=== PATIENT | male | born 1960 | race Caucasian/White ===

== ENCOUNTER → 2021-02-01 | Day surgery (SDC) | payer OTHER ==
[~2021-02-01] VITALS: Ht 30.5 cm; Wt 0.5 kg
[~2021-02-01] MED LIST: CIPROFLOXACIN 400MG/200ML 200 ML IV ONE; GLYCOPYRROLATE 0.2 MG/ML 1ML VIAL ONE; HYDROmorphone HCL 2 MG/ML VL IV PRN; MIDAZOLAM HCL 1MG/1ML-2 ML VIAL ONE; NEOSTIGMINE 1 MG/ML INJ (10mg/10ML VIAL) ONE; ONDANSETRON HCL 4 MG/2 ML VIAL IV PRN; ONDANSETRON HCL 4 MG/2 ML VIAL ONE; ROCURONIUM 10MG/ML 10ML VIAL IV ONE; fentaNYL CITRATE 100 MCG/2 ML VL ONE
[2021-02-01 09:40] VITALS: BP 121/70
== END | disposition home or self-care (01) ==
LOC: SUR 06:15
PROVIDERS: ATTEND Urology
DX: N40.1 Benign prostatic hyperplasia with lower urinary tract symptoms (principal); N21.0 Calculus in bladder; Z98.890 Other specified postprocedural states; Z79.899 Other long term (current) drug therapy; Z20.822 Contact with and (suspected) exposure to COVID-19
CPT/HCPCS: 36415; 51050; 52649; 88300; 88305; J0744; J2250; J2405; J3010; U0003

== ENCOUNTER 2022-11-22 09:25 | Inpatient (IN) | payer OTHER ==
[~2022-11-22] VITALS: Ht 190.5 cm; Wt 97.6 kg
[2022-11-22 09:59] LABS: Basophils # (auto) 0 10 ^3/uL (0-0.2); Basophils % (auto) 0.5 % (0.0-2.0); Eosinophils # (auto) 0.2 10 ^3/uL (0-0.8); Eosinophils % (auto) 2.4 % (0.0-7.0); Hematocrit 51.4 % (41.0-53.0); Hemoglobin 17.2 g/dL (13.5-17.5); Lymphocytes # (auto) 1.4 10 ^3/uL (0.4-5.4); Lymphocytes % (auto) 16.9 % (10.0-50.0); Mean Corpuscular Hemoglobin 29.1 pg (28.0-32.0); Mean Corpuscular Hgb Conc. 33.5 g/dL (32.0-36.0); Mean Corpuscular Volume 86.8 fL (80.0-100.0); Monocytes # (auto) 0.9 10 ^3/uL (0-1.3); Monocytes % (auto) 10.3 % (0.0-12.0); Neutrophils % (auto) 69.9 % (37.0-80.0); Nucleated Red Blood Cells % 0.4 %; Red Blood Cells 5.92 10^6/uL (4.5-5.90); Red Cell Distribution Width 14.1 % (11.8-14.3); White Blood Cell 8.5 10^3/uL (4.4-10.8)
[2022-11-22 10:12] LABS: Albumin 3.8 g/dL (3.4-5.0); Calcium 8.6 mg/dL (8.5-10.1); Magnesium 2.4 mg/dL (1.6-2.6); Potassium 3.9 mmol/L (3.5-5.1)
[2022-11-22] MEDS ORDERED: dilTIAZem 25 MG/5 ML VIAL IV ONE ×2 (10:15→11:00)
[2022-11-22 10:16] LABS: BUN/Creatinine Ratio 18.1; Bilirubin, Total 0.8 mg/dL (0.2-1.0); Total Protein 7.2 g/dL (6.4-8.2)
[2022-11-22 10:36] LABS: INR 1.08 (0.9-1.15); Partial Thromboplastin Time 32.8 sec (24.6-33.4)
[2022-11-22] MEDS ORDERED: dilTIAZem 120MG ER CAP PO ONE (11:00)
[2022-11-22 12:05] LABS: Urine Bacteria NONE SEEN /hpf (None Seen); Urine Blood TRACE /uL (Negative); Urine Mucus FEW (None Seen); Urine Specific Gravity 1.018 (1.001-1.035); Urine WBC 3 /hpf (0 - 3)
[2022-11-22] MEDS ORDERED: AMIODARONE HCL 150 MG in D5W 5% 100 ML IV ONE (13:30)
[2022-11-22] MEDS ORDERED: AMIODARONE 450mg/250ml AE 250 ML IV SCH (13:45)
[2022-11-22] MEDS ORDERED: NITROGLYCERIN 0.4 MG SL TAB SL PRN (13:45)
[2022-11-22] MEDS ORDERED: ENOXAPARIN SOD 100 MG/1 ML SYRINGE SC ONE (13:45)
[2022-11-22] MEDS ORDERED: MORPHINE SULFATE INJ 2 MG/ml SYRG IV PRN (13:45)
[2022-11-22 14:25] LABS: Cholesterol 174 mg/dL (< 200); HDL Cholesterol 58 mg/dL (40-59); LDL Cholesterol 114 mg/dL (< 100); Triglycerides 80 mg/dL (< 150)
[2022-11-22] MEDS: AMIODARONE 450mg/250ml AE 250 ML IV SCH ×2 (20:51→23:32)
[2022-11-22] MEDS: ENOXAPARIN SOD 100 MG/1 ML SYRINGE SC SCH (22:04)
[2022-11-23 00:16] VITALS: BP 125/68
[2022-11-23 05:00] VITALS: BP 118/62
[2022-11-23 06:18] LABS: Basophils # (auto) 0 10 ^3/uL (0-0.2); Basophils % (auto) 0.5 % (0.0-2.0); Eosinophils # (auto) 0.3 10 ^3/uL (0-0.8); Eosinophils % (auto) 2.6 % (0.0-7.0); Hematocrit 49.7 % (41.0-53.0); Hemoglobin 17.1 g/dL (13.5-17.5); Lymphocytes # (auto) 1.7 10 ^3/uL (0.4-5.4); Lymphocytes % (auto) 16.4 % (10.0-50.0); Mean Corpuscular Hemoglobin 29.6 pg (28.0-32.0); Mean Corpuscular Hgb Conc. 34.4 g/dL (32.0-36.0); Mean Corpuscular Volume 86.2 fL (80.0-100.0); Monocytes # (auto) 1.1 10 ^3/uL (0-1.3); Monocytes % (auto) 11.1 % (0.0-12.0); Neutrophils # (auto) 7.1 10 ^3/uL (1.6-8.6); Neutrophils % (auto) 69.4 % (37.0-80.0); Nucleated Red Blood Cells % 0.3 %; Red Blood Cells 5.76 10^6/uL (4.5-5.90); Red Cell Distribution Width 14.4 % (11.8-14.3); White Blood Cell 10.2 10^3/uL (4.4-10.8)
[2022-11-23 06:31] LABS: Albumin 3.7 g/dL (3.4-5.0); Calcium 8.9 mg/dL (8.5-10.1); Potassium 4.5 mmol/L (3.5-5.1)
[2022-11-23 06:36] LABS: BUN/Creatinine Ratio 13.6; Bilirubin, Total 1.6 mg/dL (0.2-1.0); Total Protein 6.6 g/dL (6.4-8.2)
[2022-11-23 09:00] VITALS: BP 116/66
[2022-11-23] MEDS: ENOXAPARIN SOD 100 MG/1 ML SYRINGE SC SCH ×2 (10:32→21:52)
[2022-11-23 13:00] VITALS: BP 110/75
[2022-11-23 17:00] VITALS: BP 107/74
[2022-11-23] MEDS: AMIODARONE HCL 200 MG TAB PO SCH (21:52)
[2022-11-23 22:00] VITALS: BP 127/69
[2022-11-24 05:00] VITALS: BP 112/68
[2022-11-24 09:00] VITALS: BP 112/66
[2022-11-24] MEDS: AMIODARONE HCL 200 MG TAB PO SCH ×2 (10:17→18:41)
[2022-11-24] MEDS: ENOXAPARIN SOD 100 MG/1 ML SYRINGE SC SCH (10:17)
[2022-11-24 13:00] VITALS: BP 107/70
[2022-11-24] MEDS ORDERED: MET25T PO (15:25)
[2022-11-24] MEDS ORDERED: AMIO200T33 PO (15:25)
[2022-11-24] MEDS ORDERED: APIX5TAB PO (15:25)
[2022-11-24 17:00] VITALS: BP 128/78
[2022-11-24 17:48] VITALS: BP 128/78
[2022-11-24] MEDS ORDERED: APIXABAN 5 MG TAB PO SCH (22:00)
[2022-11-24] MEDS ORDERED: METOPROLOL TARTRATE 25 MG TAB PO SCH (22:00)
== END 2022-11-24 19:50 | disposition home or self-care (01) | DRG 201 ==
LOC: ER 09:25 → TELE 13:37 → TELE-WESTW 22:11
PROVIDERS: ADMIT Nurse Practitioner Family; ATTEND Nurse Practitioner Family
DX: I48.91 Unspecified atrial fibrillation (principal); N40.0 Benign prostatic hyperplasia without lower urinary tract symptoms; Z20.822 Contact with and (suspected) exposure to COVID-19
CPT/HCPCS: 36415; 71045; 80053; 80061; 81001; 83036; 83735; 83880; 84443; 84484; 85025; 85379; 85610; 85730; 87426; 93005; 93306; 93970; 96365; 96366; 96375; 96376; 99291; G0378; J7060

== ENCOUNTER 2024-10-01 10:44 | Inpatient (IN) | payer OTHER ==
[~2024-10-01] VITALS: Ht 190.5 cm; Wt 96.5 kg
[~2024-10-01 10:44] MED LIST changes: +AMIO200T33 PO; +APIX5TAB PO; -CIPROFLOXACIN 400MG/200ML 200 ML IV ONE; -GLYCOPYRROLATE 0.2 MG/ML 1ML VIAL ONE; -HYDROmorphone HCL 2 MG/ML VL IV PRN; +MET25T PO; -MIDAZOLAM HCL 1MG/1ML-2 ML VIAL ONE; -NEOSTIGMINE 1 MG/ML INJ (10mg/10ML VIAL) ONE; -ONDANSETRON HCL 4 MG/2 ML VIAL IV PRN; -ONDANSETRON HCL 4 MG/2 ML VIAL ONE; -ROCURONIUM 10MG/ML 10ML VIAL IV ONE; -fentaNYL CITRATE 100 MCG/2 ML VL ONE
--- NOTE | 2024-10-01 10:56 | ECG ---
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
--- NOTE | 2024-10-01 11:06 | ED.PDOC ---
HPI Comments HPI: 64y M who presents to the ED for chief complaint of palpitations. Pt presents to the ED with the following: - pt states he has been having palpitations, lightheadedness, and shortness of breath, since 1 days prior getting progressively since - pt also has substernal chest pain, aching in nature, intermittent, rating the pain 3/10, with no associated exacerbating or relieving factors - pt states he has history of AFIB but states he has not taken his medications because they are -pt noted to be in AFIB with heart rate in the 150's per multiple EKG's - pt is currently on blood thinner eliquis which he is currently taking VITALS: Temp: 98.2 F RR: 18 02 sat : 96% on room air HR: 156 BP: 103/49 PMH: AFIB, prostate PSH: prostate surgery, Social history: denies tobacco use, denies ETOH use, denies drug use Medications: flecanide, eliquis, carvidelol Allergies: amiodarone, IV contrast, digoxin, gabapentin, iodine, lorezapam, Chief Complaint: Palpitations Time Seen by MD: 10:51 Primary Care Provider: QUYNH Martinez Notes: Nurses Notes, Medications, Allergies Allergies: Coded Allergies: NO KNOWN ALLERGIES (Unverified , 11/22/22) Home Meds Active Scripts Metoprolol Tartrate (Lopressor) 25 Mg Tb, 25 MG PO BID for 30 Days, #60 TAB Prov:MARGI GRAF MD 11/24/22 Apixaban Base (ELIQUIS) 5 Mg Tab, 5 MG PO BID for 30 Days, #60 TAB Prov:MARGI GRAF MD 11/24/22 Amiodarone Hcl (Amiodarone Hcl) 200 Mg Tab, 1 TAB PO BID for 30 Days, #60 TAB 1 Refill Prov:MARGI GRAF MD 11/24/22 Information Source: Patient Past Medical History PAST MEDICAL HISTORY: AFIB Family History Family History: Reviewed,noncontributory to illness Social History Smoker: Non-Smoker Alcohol: Rarely Drugs: Denies Drug Use Lives In: Home Was a procedure done? Was a procedure done?: No X-Ray, Labs, Meds, VS Vital Signs Date Time Temp Pulse Resp B/P (MAP) Pulse Ox O2 Delivery O2 Flow Rate FiO2 12/13/24 12:55 148 114/60 10/01/24 11:50 150 10/01/24 11:16 98.4 158 18 100/68 (79) 96 98.4 10/01/24 10:57 156 10/01/24 10:51 156 10/01/24 10:48 98.2 78 18 103/49 (67) 96 Lab Test 10/01/24 12:07 10/01/24 11:00 10/01/24 10:56 Range/Units Troponin I High Sensitivity 3 L 4 </=54 ng/L White Blood Count 6.1 4.4-10.8 10^3/uL Red Blood Count 5.82 4.5-5.90 10^6/uL Hemoglobin 17.4 13.5-17.5 g/dL Hematocrit 51.2 41.0-53.0 % Mean Corpuscular Volume 87.9 80.0-100.0 fL Mean Corpuscular Hemoglobin 30.0 28.0-32.0 pg Mean Corpuscular Hemoglobin Concent 34.1 32.0-36.0 g/dL Red Cell Distribution Width 13.9 11.8-14.3 % Platelet Count 200 140-450 10^3/uL Mean Platelet Volume 8.5 6.9-10.8 fL Neutrophils (%) (Auto) 60.5 37.0-80.0 % Lymphocytes (%) (Auto) 21.0 10.0-50.0 % Monocytes (%) (Auto) 17.1 H 0.0-12.0 % Eosinophils (%) (Auto) 1.0 0.0-7.0 % Basophils (%) (Auto) 0.4 0.0-2.0 % Neutrophils # (Auto) 3.7 1.6-8.6 10 ^3/uL Lymphocytes # (Auto) 1.3 0.4-5.4 10 ^3/uL Monocytes # (Auto) 1.0 0-1.3 10 ^3/uL Eosinophils # (Auto) 0.1 0-0.8 10 ^3/uL Basophils # (Auto) 0 0-0.2 10 ^3/uL Nucleated Red Blood Cells 0.3 % Sodium Level 144 136-145 mmol/L Potassium Level 4.4 3.5-5.1 mmol/L Chloride Level 109 H 98-107 mmol/L Carbon Dioxide Level 27 20-31 mmol/L Anion Gap 8 5-15 Blood Urea Nitrogen 17 9-23 mg/dL Creatinine 1.20 0.700-1.30 mg/dL Glomerular Filtration Rate Calc 68 >90 mL/min BUN/Creatinine Ratio 14.2 10.0-20.0 Serum Glucose 98 74-106 mg/dL Lactic Acid Level 1.8 0.4-2.0 mmol/L Calcium Level 9.9 8.7-10.4 mg/dL Magnesium Level 2.2 1.6-2.6 mg/dL Total Bilirubin 0.8 0.2-1.0 mg/dL Aspartate Amino Transferase (AST) 31 13-40 U/L Alanine Aminotransferase (ALT) 31 7-40 U/L Alkaline Phosphatase 94 46-116 U/L B-Type Natriuretic Peptide 443.14 0-100 pg/mL Total Protein 6.5 5.7-8.2 g/dL Albumin 4.2 3.2-4.8 g/dL Urine Color Pending Urine Clarity Pending Urine pH Pending Urine Specific [place] Pending Urine Protein Pending Urine Ketones Pending Urine Blood Pending Urine Nitrite Pending Urine Bilirubin Pending Urine Urobilinogen Pending Urine Leukocyte Esterase Pending Urine RBC Pending Urine WBC Pending Urine Squamous Epithelial Cells Pending Urine Bacteria Pending Urine Glucose Pending Current Medications Medications (Trade) Dose Ordered Sig/Eulalia Route Start Time Stop Time Status Last Admin Sodium Chloride 250 ml @ 1,000 mls/hr Q15M ONCE IV 10/01/24 12:00 10/01/24 12:14 DC 10/01/24 12:02 Metoprolol Tartrate (Lopressor) 5 mg ONCE ONCE IV 10/01/24 12:45 10/01/24 12:46 [place] 10/01/24 12:[address] [address] Ph: [phone] DIAGNOSTIC IMAGING Diagnostic Imaging Report : [id number] Signed PATIENT: ARASH ADAMSACCT: [id number] UNIT: [id number] : 1960 LOC: ER ROOM / BED: / AGE / SEX: 64 / M ADM STATUS: REG ER SERVICE 1102 ORDERING PHYSICIAN: GEOVANI FARIAS DO PROCEDURE(s): CXRP - CHEST PORTABLE REASON: cp, palpitations,sob ORDER NUMBER(s): [id number], ACCESSION NUMBER(s): [id number] CLINICAL INFORMATION: 64 years old, Male; chest pain, palpitations, shortness of breath. TECHNIQUE: Single AP portable chest radiograph was obtained. COMPARISON: CHEST PORTABLE on DOS: 11/22/22, CXRP on DOS: 11/22/22 FINDINGS: Lungs: Clear. Cardiac: Heart size is within normal limits. Pulmonary vasculature: Unremarkable. Mediastinum/adriana: Unremarkable. Bones: No acute osseous abnormality identified. Other: No other significant findings. IMPRESSION: No evidence of acute disease in the chest. ATED BY: MARCO A ROGER DO DICTATED DATE/TIME: 10/01/241121 SIGNED BY: MARCO A ROGER DO SIGNED DATE/TIME: 10/01/241121 CC: Patient Education/Counseling: Diagnosis, Treatment Family Education/Counseling: No Family Present Additional Information Patient presented with the above HPI.---palpitations---workup was initiated. patient was found with the above mentioned diagnosis. the following medications were ordered: metoprolol, IV fluids the following tests were ordered: troponin x3, chest x-ray, UA, magnesium, lactic acid, CMP, CBC, BNP, EKG x3 Patient ED course and VS have been stabilized. Patient has been reassessed in the ED and remained in a stable condition. Patient has been observed in the ED adequate length of time to insure improvement/stability. Escalation of care considered: Consideration of escalation to observation or admission. patient was admitted to the medicine team for further evaluation and treatment of their presentation. All the reports of any imaging studies that were ordered by myself were reviewed by myself. Departure 1 Departure Time of Disposition: 13:04 Impression: Primary Impression: Atrial fibrillation with RVR Additional Impressions: Chest pain Generalized weakness Disposition: ADMITTED INPATIENT Admit to: Tele Condition: Guarded Discharged With: Self Critical Care Note Critical Care Time?: No Heart Score Heart Score: Heart Score Response (Comments) Value History Moderate Suspicious 1 Age 45-64 1 Risk Factors 1 or 2 risk factors 1 Total 3 I personally scribed for GEOVANI FARIAS DO ([email or web address]) on 10/01/24 at 11:06. Electronically submitted by En Mirza ([facility] I personally scribed for GEOVANI FARIAS DO ([facility]) on 10/01/24 at 13:25. Electronically submitted by En Mirza ([facility]). GEOVANI FARIAS DO Oct 01, 2024 11:06
[2024-10-01 11:24] LABS: Basophils # (auto) 0 10 ^3/uL (0-0.2); Basophils % (auto) 0.4 % (0.0-2.0); Eosinophils # (auto) 0.1 10 ^3/uL (0-0.8); Hematocrit 51.2 % (41.0-53.0); Hemoglobin 17.4 g/dL (13.5-17.5); Lymphocytes # (auto) 1.3 10 ^3/uL (0.4-5.4); Mean Corpuscular Hgb Conc. 34.1 g/dL (32.0-36.0); Mean Corpuscular Volume 87.9 fL (80.0-100.0); Monocytes % (auto) 17.1 % (0.0-12.0); Neutrophils # (auto) 3.7 10 ^3/uL (1.6-8.6); Neutrophils % (auto) 60.5 % (37.0-80.0); Nucleated Red Blood Cells % 0.3 %; Platelet Count (auto) 200 10^3/uL (140-450); Red Blood Cells 5.82 10^6/uL (4.5-5.90); Red Cell Distribution Width 13.9 % (11.8-14.3); White Blood Cell 6.1 10^3/uL (4.4-10.8)
--- NOTE | 2024-10-01 11:25 | DVH ---
CLINICAL INFORMATION: 64 years old, Male; chest pain, palpitations, shortness of breath. TECHNIQUE: Single AP portable chest radiograph was obtained. COMPARISON: CHEST PORTABLE on DOS: 11/22/22, CXRP on DOS: 11/22/22 FINDINGS: Lungs: Clear. Cardiac: Heart size is within normal limits. Pulmonary vasculature: Unremarkable. Mediastinum/adriana: Unremarkable. Bones: No acute osseous abnormality identified. Other: No other significant findings. IMPRESSION: No evidence of acute disease in the chest.
[2024-10-01 11:38] LABS: Alanine Aminotransferase 31 U/L (7-40); Albumin 4.2 g/dL (3.2-4.8); Alkaline Phosphatase 94 U/L (46-116); Anion Gap 8 (5-15); Aspartate Aminotransferase 31 U/L (13-40); BUN/Creatinine Ratio 14.2 (10.0-20.0); Blood Urea Nitrogen 17 mg/dL (9-23); Calcium 9.9 mg/dL (8.7-10.4); Carbon Dioxide 27 mmol/L (20-31); Glucose 98 mg/dL (74-106); Magnesium 2.2 mg/dL (1.6-2.6); Potassium 4.4 mmol/L (3.5-5.1); Sodium 144 mmol/L (136-145)
[2024-10-01 11:39] LABS: Total Protein 6.5 g/dL (5.7-8.2)
[2024-10-01 11:50] LABS: Chloride 109 mmol/L (98-107)
[2024-10-01 12:00] VITALS: PULSE 146; RESP 12; O2SAT 94
[2024-10-01] MEDS: SODIUM CHLORIDE 0.9% 250 ML IV ONE (12:02)
[2024-10-01 12:41] LABS: Bilirubin, Total 0.8 mg/dL (0.2-1.0)
[2024-10-01] MEDS: METOPROLOL TARTRATE 1MG/1ML-5ML VIAL IV ONE ×2 (12:55→13:38)
[2024-10-01 13:00] LABS: Urine Bacteria None Seen /hpf (None Seen)
[2024-10-01 13:37] LABS: Urine Blood 1+ /uL (Negative); Urine Clarity Clear (Clear); Urine Color Yellow (Yellow); Urine Hyaline Cast FEW /lpf (0 - 2); Urine Mucus FEW (None Seen); Urine Protein, UAD TRACE (Negative); Urine Specific Gravity 1.026 (1.001-1.035); Urine Urobilinogen Normal (Negative); Urine WBC 2 /hpf (0 - 3); Urine pH 5.5 (5.0-9.0)
[2024-10-01] MEDS ORDERED: ACETAMINOPHEN 325 MG TAB PO PRN (14:15)
[2024-10-01] MEDS ORDERED: NITROGLYCERIN 0.4 MG SL TAB SL PRN ×2 (14:15)
[2024-10-01] MEDS ORDERED: ZOLPIDEM TARTRATE 5 MG TAB PO PRN (14:15)
[2024-10-01] MEDS ORDERED: MORPHINE SULFATE INJ 2 MG/ml SYRG IV PRN (14:15)
[2024-10-01] MEDS ORDERED: MORPHINE SULFATE 4 MG/ML SYR/VIAL IV PRN (14:15)
[2024-10-01] MEDS ORDERED: LORazepam 0.5 MG TAB PO PRN (14:15)
[2024-10-01] MEDS ORDERED: ONDANSETRON HCL 4 MG/2 ML VIAL IV PRN (14:15)
--- NOTE | 2024-10-01 14:43 | DVHHP2 ---
History of Present Illness Reason for Visit: palpitations History of Present Illness Jonatan Vázquez is a 64-year-old male with past medical history of AFib and prostate disease who presents to the ED today for palpitations, lightheadedness, shortness of breath, chest pain x1 day. Patient reports that he had palpitations for the last 3 days. Prior to that on Friday he developed a stomach flu stated he went to a [employer] restaurant and had a buffet. Prior to that 3 weeks ago he said he had a root canal was on antibiotics had stopped his Eliquis for 2 days and has resumed back on it. Patient also reports that he has medication flecainide that is not been taking it due to it being . He reports that he did not go back into see his physician for a refill. He states that he has been taking all his other medications. He also reports that he sees Dr. Tam for any heart condition but has not seen him recently. Patient denies any fevers, chills, headache, abdominal pain, nausea, vomiting, and diarrhea. Cardiovascular: AFIB Renal/: Other (prostate) Past Surgical History: Other (Prostate erosion laser) Family History: Cancer, Other (Mom - breast CA Dad - Afib Brother - Mantle cell lymphoma 2nd Brother - Afib) Smoke: No ALCOHOL: none Drugs: None Lives: with Family Domestic Violence: Neg Review of Systems Constitutional: No: Fever, Chills, Sweats, Weakness, Malaise, Other Eyes: No: Pain, Vision change, Conjunctivae inflammation, Eyelid inflammation, Other, Redness ENT: No: Ear pain, Ear discharge, Nose pain, Nose discharge, Nose congestion, M outh pain, Mouth swelling, Throat pain, Throat swelling, Other Respiratory: Shortness of breath; No: Cough, Dry, SOB with excertion, Wheezing, Hemoptysis, Pleuritic Pain, Sputum, Wheezing, Other Cardiovascular: Chest Pain, Palpitations, Lt Headedness; No: Orthopnea, Paroxysmal Noc. Dyspnea, Edema, Other Gastrointestinal: No: Nausea, Vomiting, Abdominal Pain, Diarrhea, Constipation, Melena, Hematochezia, Other Genitourinary: No Dysuria, No Frequency, No Incontinence, No Hematuria, No Retention, No Other Musculoskeletal: No: other, neck pain, shoulder pain, arm pain, back pain, hand pain, leg pain, foot pain Skin: No: Rash, Lesions, Jaundice, Bruising, Other Neurological: No: Weakness, Numbness, Incoordination, Change in speech, Confusion, Seizures, Other Allergies: Coded Allergies: NO KNOWN ALLERGIES (Unverified , 11/22/22) Medications Current Medications Medications Dose Ordered Sig/Eulalia Route Start Time Stop Time Status Last Admin Dose Admin Aspirin 81 mg DAILY PO 10/02/24 10:00 UNV Atorvastatin Calcium 40 mg HS PO 10/01/24 22:00 UNV Morphine Sulfate 2 mg Q30MP PRN IV 10/01/24 14:15 UNV Acetaminophen 650 mg Q6HP PRN PO 10/01/24 14:15 UNV Zolpidem Tartrate 5 mg QHSP PRN PO 10/01/24 14:15 UNV Lorazepam 0.5 mg Q6HP PRN PO 10/01/24 14:15 UNV Docusate Sodium 100 mg DAILY PO 10/02/24 10:00 UNV Nitroglycerin 0.4 mg Q5MINP PRN SL 10/01/24 14:15 UNV Ondansetron HCl 4 mg Q4HP PRN IV 10/01/24 14:15 UNV Nitroglycerin 0.4 mg Q5MINP PRN SL 10/01/24 14:15 UNV Morphine Sulfate 2 mg Q30M PRN IV 10/01/24 14:15 UNV Exam Vital Signs Vital Signs Date Time Temp Pulse Resp B/P (MAP) Pulse Ox O2 Delivery O2 Flow Rate FiO2 10/01/24 13:38 126 126/61 10/01/24 13:34 17 96 10/01/24 12:00 Room Air* 0 21 10/01/24 11:16 98.4 98.4 General Appearance: Alert, Oriented X3, Cooperative, No acute distress HEENT: Atraumatic, PERRLA, EOMI, Mucous membr. moist/pink Respiratory: Clear to auscultation, Normal air movement Cardiovascular: Normal S1, Normal S2, No murmurs Abdominal: Normal bowel sounds, Soft, No tenderness, No hepatospenomegaly, No masses Extremities: No clubbing, No cyanosis, No edema, Normal pulses, No tenderness/swelling Skin: No rashes, No breakdown, No significant lesion Neuro: Normal gait, Normal speech, Strength at 5/5 X4 ext, Normal tone, Sensation intact Psych/Mental Status: Mental status NL, Mood NL Labs/Xrays Labs Test 10/01/24 14:12 10/01/24 11:00 10/01/24 10:56 Range/Units White Blood Count 6.1 4.4-10.8 10^3/uL Red Blood Count 5.82 4.5-5.90 10^6/uL Hemoglobin 17.4 13.5-17.5 g/dL Hematocrit 51.2 41.0-53.0 % Mean Corpuscular Volume 87.9 80.0-100.0 fL Mean Corpuscular Hemoglobin 30.0 28.0-32.0 pg Mean Corpuscular Hemoglobin Concent 34.1 32.0-36.0 g/dL Red Cell Distribution Width 13.9 11.8-14.3 % Platelet Count 200 140-450 10^3/uL Mean Platelet Volume 8.5 6.9-10.8 fL Neutrophils (%) (Auto) 60.5 37.0-80.0 % Lymphocytes (%) (Auto) 21.0 10.0-50.0 % Monocytes (%) (Auto) 17.1 H 0.0-12.0 % Eosinophils (%) (Auto) 1.0 0.0-7.0 % Basophils (%) (Auto) 0.4 0.0-2.0 % Neutrophils # (Auto) 3.7 1.6-8.6 10 ^3/uL Lymphocytes # (Auto) 1.3 0.4-5.4 10 ^3/uL Monocytes # (Auto) 1.0 0-1.3 10 ^3/uL Eosinophils # (Auto) 0.1 0-0.8 10 ^3/uL Basophils # (Auto) 0 0-0.2 10 ^3/uL Nucleated Red Blood Cells 0.3 % Sodium Level 144 136-145 mmol/L Potassium Level 4.4 3.5-5.1 mmol/L Chloride Level 109 H 98-107 mmol/L Carbon Dioxide Level 27 20-31 mmol/L Anion Gap 8 5-15 Blood Urea Nitrogen 17 9-23 mg/dL Creatinine 1.20 0.700-1.30 mg/dL Glomerular Filtration Rate Calc 68 >90 mL/min BUN/Creatinine Ratio 14.2 10.0-20.0 Serum Glucose 98 74-106 mg/dL Lactic Acid Level 1.8 0.4-2.0 mmol/L Calcium Level 9.9 8.7-10.4 mg/dL Magnesium Level 2.2 1.6-2.6 mg/dL Total Bilirubin 0.8 0.2-1.0 mg/dL Aspartate Amino Transferase (AST) 31 13-40 U/L Alanine Aminotransferase (ALT) 31 7-40 U/L Alkaline Phosphatase 94 46-116 U/L B-Type Natriuretic Peptide 443.14 0-100 pg/mL Total Protein 6.5 5.7-8.2 g/dL Albumin 4.2 3.2-4.8 g/dL Urine Color Yellow Yellow Urine Clarity Clear Clear Urine pH 5.5 5.0-9.0 Urine Specific [place] 1.026 1.001-1.035 Urine Protein Trace H Negative Urine Ketones 1+ H Negative Urine Blood 1+ H Negative /uL Urine Nitrite Negative Negative Urine Bilirubin Negative Negative Urine Urobilinogen Normal Negative mg/dL Urine Leukocyte Esterase Negative Negative /uL Urine RBC 19 0 - 3 /hpf Urine WBC 2 0 - 3 /hpf Urine Squamous Epithelial Cells None seen <5 /hpf Urine Calcium Oxalate Crystals Few None Seen Urine Bacteria None seen None Seen /hpf Urine Hyaline Casts Few 0 - 2 /lpf Urine Mucus Few None Seen Urine Glucose Normal Normal mg/dL CLINICAL INFORMATION: 64 years old, Male; chest pain, palpitations, shortness of breath. TECHNIQUE: Single AP portable chest radiograph was obtained. COMPARISON: CHEST PORTABLE on DOS: 11/22/22, CXRP on DOS: 11/22/22 FINDINGS: Lungs: Clear. Cardiac: Heart size is within normal limits. Pulmonary vasculature: Unremarkable. Mediastinum/adriana: Unremarkable. Bones: No acute osseous abnormality identified. Other: No other significant findings. IMPRESSION: No evidence of acute disease in the chest. Assessment/Plan Assessment/Plan Assessment/Plan: AFIB with rvr IV metop ekg noted cxr noted labs echo acs protocol asa statin ekg am labs am trend trop trop x3 negative ua Cards cx -Dr. Tam IV lasix continue home meds - amio, metop, and eliquis cardizem drip Prostate f/u outpatient PCP FEN/PPX cardiac diet hl Patient ambulating no need for dvt ppx PUD ppx not indicated no hx of GERD home medications reconciled discussed plan of care with patient and nurse Admit to stepdown Plan discussed with: Patient My Orders Orders - PAULY DENISE [employer] Procedure Category Date Status Time Admit ADMIT 10/01/24 Transmitted 14:15 Code Status CODE 10/01/24 Transmitted 14:15 Vital Signs FABIAN 10/01/24 In Process 14:15 Professor Of English FABIAN 10/01/24 In Process 14:15 Cardiac DIET 10/01/24 Transmitted Diet-2gna,Lofat,Lochol Dinner Aspirin Tablet PHA 10/02/24 Logged 10:00 Atorvastatin (Lipitor) PHA 10/01/24 Logged 22:00 Morphine Sulfate PHA 10/01/24 Logged Injection 14:15 Acetaminophen Tablet PHA 10/01/24 Logged (Tylenol Tablet) 14:15 Zolpidem Tartrate PHA 10/01/24 Logged (Ambien) 14:15 Lorazepam Tablet PHA 10/01/24 Logged (Ativan Tablet) 14:15 Docusate Sodium PHA 10/02/24 Logged Capsule (Colace 10:00 Complete Blood Count LAB 10/02/24 Verified 04:00 Comprehensive LAB 10/02/24 Verified Metabolic Panel 04:00 Echo 2d Mode Cardiac US 10/01/24 Logged DOP 14:15 Chest Xray 1 View XY 10/02/24 Logged 06:00 Nitroglycerin PHA 10/01/24 Logged Sublingual (Ntrostat 14:15 Ondansetron Hcl PHA 10/01/24 Logged (Zofran) 14:15 Alum & Mag PHA 10/01/24 Logged Hydrox-Simethicone 14:15 Cardiac FABIAN 10/01/24 In Process Rehabilitation - Outpa Nitroglycerin PHA 10/01/24 Logged Sublingual (Ntrostat 14:15 Morphine Sulfate PHA 10/01/24 Logged Injection 14:15 Stat Ekg For Chest FABIAN 10/01/24 In Process Pain 14:15 Notify Md Of Changes FABIAN 10/01/24 In Process From Base 14:15 Building Appraiser For FABIAN 10/01/24 In Process 24 Hours 14:15 Emergency Dysrhythmia FABIAN 10/01/24 In Process Protocol 14:15 Rhythm Strips Once FABIAN 10/01/24 In Process Every Shift 14:15 Oxygen By Nasal RT 10/01/24 Transmitted Cannula 14:15 * Cardiology Consult CONS 10/01/24 Transmitted 14:15 Electrocardigram EKG 10/02/24 Logged 04:00 Date of Service: Oct 01, 2024 Billing Provider: PAULY DENISE Common Visit Codes: [id number] INP/OBS CARE (MOD) PAULY DENISE Oct 01, 2024 14:43
[2024-10-01] MEDS: MAALOX PLUS or MAALOX 30 ML PO ONE (15:16)
[2024-10-01] MEDS: FUROSEMIDE 40 MG/4 ML VIAL IV ONE (15:47)
[2024-10-01] MEDS: dilTIAZem 125mg/125ml BAG KIT 100 ML IV SCH (16:39)
--- NOTE | 2024-10-01 17:27 | DVHINCON2 ---
Date Seen: Oct 01, 2024 Referring Physician VINH Zamora Reason for Consultation Afib RVR History of Present Illness This is a 64-year-old male patient who presents to emergency room with chief complaint of lightheadedness, shortness of breath, and palpitations. Patient reports symptoms began approximately last night. After no relief of symptoms today, the patient decided to come to the emergency room for further evaluation. Initial twelve lead electrocardiogram done in the emergency room reveals atrial fibrillation with rapid ventricular rate. Cardiology has now been consulted for further management. Significant past medical history includes paroxysmal atrial fibrillation (on Eliquis) and BPH. The patient reports he follows up with general maintenance helper in the outpatient setting. The patient reports he was prescribed flecainide as needed but has not taken it of over a year and did not take it when he initially began having palpitations for fear that the prescription may be . Past Medical History Past medical history reviewed. No other significant than mentioned above. Past Surgical History Cystoscopy Family History: FH: atrial fibrillation G8 FATHER, Onset:Unknown G8 BROTHER, Onset:Unknown FH: breast cancer G8 MOTHER, Onset:Unknown Family History Family history reviewed. Social History Denies the use of tobacco, alcohol or illicit drugs. Allergies: Coded Allergies: NO KNOWN ALLERGIES (Unverified , 11/22/22) Home Meds Active Scripts Metoprolol Tartrate (Lopressor) 25 Mg Tb, 25 MG PO BID for 30 Days, #60 TAB Prov:MARGI GRAF MD 11/24/22 Apixaban Base (ELIQUIS) 5 Mg Tab, 5 MG PO BID for 30 Days, #60 TAB Prov:MARGI GRAF MD 11/24/22 Amiodarone Hcl (Amiodarone Hcl) 200 Mg Tab, 1 TAB PO BID for 30 Days, #60 TAB 1 Refill Prov:MARGI GRAF MD 11/24/22 Home Meds Home medications reviewed. Current Medications Current Medications Medications (Trade) Dose Ordered Sig/Eulalia Route PRN Reason Start Time Stop Time Status Last Admin Aspirin 81 mg DAILY PO 10/02/24 10:00 Atorvastatin Calcium (Lipitor) 40 mg HS PO 10/01/24 22:00 Morphine Sulfate 2 mg Q30MP PRN IV FOR CHEST PAIN 10/01/24 14:15 10/01/24 14:37 DC Acetaminophen (Tylenol Tablet) 650 mg Q6HP PRN PO MILD PAIN (1-3 PAIN SCALE) 10/01/24 14:15 Zolpidem Tartrate (Ambien) 5 mg QHSP PRN PO FOR INSOMNIA 10/01/24 14:15 Lorazepam (Ativan Tablet) 0.5 mg Q6HP PRN PO ANXIETY 10/01/24 14:15 Docusate Sodium (Colace Capsule) 100 mg DAILY PO 10/02/24 10:00 Nitroglycerin (Ntrostat Sublingual) 0.4 mg Q5MINP PRN SL FOR CHEST PAIN 10/01/24 14:15 10/01/24 14:37 DC Ondansetron HCl (Zofran) 4 mg Q4HP PRN IV NAUSEA / VOMITING 10/01/24 14:15 Nitroglycerin (Ntrostat Sublingual) 0.4 mg Q5MINP PRN SL FOR CHEST PAIN 10/01/24 14:15 Morphine Sulfate 2 mg Q30M PRN IV FOR CHEST PAIN 10/01/24 14:15 Amiodarone HCl (Cordarone Tablet) 200 mg BID PO 10/01/24 22:00 Apixaban (Eliquis) 5 mg BID PO 10/01/24 22:00 Metoprolol Tartrate (Lopressor Tablet) 25 mg BID PO 10/01/24 22:00 Diltiazem HCl 100 ml @ 5 mls/hr Q20H IV 10/01/24 16:30 10/01/24 16:39 Review of Systems Constitutional: Generalized weakness Ears, Nose, & Throat: No symptom reported Eyes: No symptom reported Neurological: No symptoms reported Pulmonary/Respiratory: Palpitations Cardiovascular: No symptom reported Gastrointestinal: No symptom reported Genitourinary: No symptom reported Musculoskeletal: No symptom reported Skin: No symptom reported Psychiatric: No symptom reported Endocrine: No symptom reported Hematologic/Lymphatic: No symptom reported Vital Signs Vital Signs Date Time Temp Pulse Resp B/P (MAP) Pulse Ox O2 Delivery O2 Flow Rate FiO2 10/01/24 17:09 100/58 10/01/24 14:38 126 10/01/24 13:34 17 96 10/01/24 12:00 Room Air* 0 21 10/01/24 11:16 98.4 98.4 Physical Exam General Appearance: Cooperative. Well-developed. Well-nourished. No acute distress. Pulmonary/Respiratory: Clear, bilateral breaths sounds. Cardiovascular/Chest: Irregular rate and rhythm. Peripheral Pulses: 2+ Radial (R). 2+ Radial (L). 2+ Pedal (R). 2+ Pedal (L) Abdominal Exam: Normal bowel sounds. Ankle Exam: Negative ankle edema Lower extremities: Negative lower extremity edema Neuro/Mental Status: A/OX4, coherent. Thoughts/Psych: Normal thought pattern. Appropriate mood and affect. Good judgment and insight. Appearance: No acute distress. Skin Exam: Normal inspection. Normal color. Warm and dry. Labs/Diagnostic Data Labs Test 10/01/24 14:12 10/01/24 11:00 10/01/24 10:56 Range/Units Troponin I High Sensitivity 3 L </=54 ng/L White Blood Count 6.1 4.4-10.8 10^3/uL Red Blood Count 5.82 4.5-5.90 10^6/uL Hemoglobin 17.4 13.5-17.5 g/dL Hematocrit 51.2 41.0-53.0 % Mean Corpuscular Volume 87.9 80.0-100.0 fL Mean Corpuscular Hemoglobin 30.0 28.0-32.0 pg Mean Corpuscular Hemoglobin Concent 34.1 32.0-36.0 g/dL Red Cell Distribution Width 13.9 11.8-14.3 % Platelet Count 200 140-450 10^3/uL Mean Platelet Volume 8.5 6.9-10.8 fL Neutrophils (%) (Auto) 60.5 37.0-80.0 % Lymphocytes (%) (Auto) 21.0 10.0-50.0 % Monocytes (%) (Auto) 17.1 H 0.0-12.0 % Eosinophils (%) (Auto) 1.0 0.0-7.0 % Basophils (%) (Auto) 0.4 0.0-2.0 % Neutrophils # (Auto) 3.7 1.6-8.6 10 ^3/uL Lymphocytes # (Auto) 1.3 0.4-5.4 10 ^3/uL Monocytes # (Auto) 1.0 0-1.3 10 ^3/uL Eosinophils # (Auto) 0.1 0-0.8 10 ^3/uL Basophils # (Auto) 0 0-0.2 10 ^3/uL Nucleated Red Blood Cells 0.3 % Sodium Level 144 136-145 mmol/L Potassium Level 4.4 3.5-5.1 mmol/L Chloride Level 109 H 98-107 mmol/L Carbon Dioxide Level 27 20-31 mmol/L Anion Gap 8 5-15 Blood Urea Nitrogen 17 9-23 mg/dL Creatinine 1.20 0.700-1.30 mg/dL Glomerular Filtration Rate Calc 68 >90 mL/min BUN/Creatinine Ratio 14.2 10.0-20.0 Serum Glucose 98 74-106 mg/dL Lactic Acid Level 1.8 0.4-2.0 mmol/L Calcium Level 9.9 8.7-10.4 mg/dL Magnesium Level 2.2 1.6-2.6 mg/dL Total Bilirubin 0.8 0.2-1.0 mg/dL Aspartate Amino Transferase (AST) 31 13-40 U/L Alanine Aminotransferase (ALT) 31 7-40 U/L Alkaline Phosphatase 94 46-116 U/L B-Type Natriuretic Peptide 443.14 0-100 pg/mL Total Protein 6.5 5.7-8.2 g/dL Albumin 4.2 3.2-4.8 g/dL Urine Color Yellow Yellow Urine Clarity Clear Clear Urine pH 5.5 5.0-9.0 Urine Specific [place] 1.026 1.001-1.035 Urine Protein Trace H Negative Urine Ketones 1+ H Negative Urine Blood 1+ H Negative /uL Urine Nitrite Negative Negative Urine Bilirubin Negative Negative Urine Urobilinogen Normal Negative mg/dL Urine Leukocyte Esterase Negative Negative /uL Urine RBC 19 0 - 3 /hpf Urine WBC 2 0 - 3 /hpf Urine Squamous Epithelial Cells None seen <5 /hpf Urine Calcium Oxalate Crystals Few None Seen Urine Bacteria None seen None Seen /hpf Urine Hyaline Casts Few 0 - 2 /lpf Urine Mucus Few None Seen Urine Glucose Normal Normal mg/dL Assessment Atrial fibrillation with a rapid ventricular response (Takes Eliquis) Rule out structural heart disease Rule out thyroid disease BPH Plan/Recommendation We will continue with following plan/recommendations (Dr. Tam): * Transthoracic echocardiogram to evaluate cardiac function * Previous echo reveals EF 55% on 11/23/22 * [id number] VASc score: 0, HAS-BLED score: 1 point * Continue home dose Eliquis * Initiate beta-indra * Initiate amiodarone drip * Discontinue Cardizem drip * Monitor and replete electrolytes as needed, keep potassium greater than four and magnesium greater than two * Labs: TSH, UDS Case discussed and reviewed with . agrees to discontinue Cardizem drip at this time and initiate amiodarone drip for antiarrhythmic control. We will also continue patient's home NOAC Eliquis as well as beta-indra for rate control. Thank you for allowing us to care for this patient. Please call with any questions or concerns. Critical care time spent: 40 minutes This medical document was created using an electronic medical record system with voice recognition software and computerized dictation system. Although this document has been carefully reviewed, there might still be some phonetic and typographical errors. Occasional wrong-word or ``sound-alike substitutions may have occurred due to the inherent limitations of voice recognition software. These areas are purely typographical due to imperfections of the software programs and do not reflect any compromise in the patient's medical care. Please read the chart carefully and recognize, using context, where these substitutions have occurred. Plan discussed with: Patient Date of Service: Oct 01, 2024 Billing Provider: JESSY PIPER Cardiology Common Codes: [id number] INP/OBS CARE (High) Cardiology Consultation Codes: [id number] CONSULT <45MIN JESSY PIPER Oct 01, 2024 17:27
--- NOTE | 2024-10-01 18:56 | ECG ---
[facility] Test Date: 2024-10-01 Test Time: 11:50:15 Pat Name: ARASH ADAMS Department: ED Room: [address] [place] [address] Gender: M Professional Shopper: MYCHAL : 1960 Requested By: GEOVANI FARIAS Order Number: [id number] Reading MD: Measurements Intervals [place] Rate: 150 P: 0 NM: 0 QRS: 73 QRSD: 90 T: 28 QT: 303 QTc: 479 Interpretive Statements Atrial fibrillation Minimal ST depression, inferior leads Borderline prolonged QT interval Baseline wander in lead(s) II,III,aVF Please click the below link to view image of tracing.
--- NOTE | 2024-10-01 18:57 | ECG ---
[facility] Test Date: 2024-10-01 Test Time: 13:29:33 Pat Name: ARASH ADAMS Department: ED Room: [address] [place] [address] Gender: M Toe Puller: MYCHAL : 1960 Requested By: GEOVANI FARIAS Order Number: [id number] Reading MD: Measurements Intervals [place] Rate: 132 P: 0 MD: 0 QRS: 77 QRSD: 92 T: 32 QT: 323 QTc: 479 Interpretive Statements Atrial fibrillation Minimal ST elevation, lateral leads Borderline prolonged QT interval Please click the below link to view image of tracing.
[2024-10-01] MEDS: AMIODARONE BOLUS KIT 100 ML IV ONE (19:10)
[2024-10-01] MEDS: AMIODARONE 450mg/250ml AE 250 ML IV SCH (19:30)
[2024-10-01 19:32] LABS: Triglycerides 96 mg/dL (< 150)
[2024-10-01 19:33] LABS: LDL Cholesterol 78 mg/dL (< 100)
[2024-10-01 19:34] LABS: Cholesterol 130 mg/dL (< 200)
[2024-10-01 19:37] LABS: HDL Cholesterol 37 mg/dL (40-59)
[2024-10-01 19:37] LABS: Amphetamine Screen, Urine Neg (NEGATIVE); Barbiturate Scree,Urine Neg (NEGATIVE); Benzodiazephine Screen, Urine Neg (NEGATIVE); Cannabinoid Screen, Urine Neg (NEGATIVE); Cocaine Screen, Urine Neg (NEGATIVE); Opiate Scree,Urine Neg (NEGATIVE); Phencyclidine Screen, Urine Neg (NEGATIVE)
[2024-10-01] MEDS: METOPROLOL TARTRATE 25 MG TAB PO SCH (21:51)
[2024-10-01] MEDS: APIXABAN 5 MG TAB PO SCH (21:57)
[2024-10-01] MEDS: ATORVASTATIN 20 MG TAB PO SCH (21:57)
[2024-10-01] MEDS ORDERED: AMIODARONE HCL 200 MG TAB PO SCH (22:00)
[2024-10-02] VITALS (7 sets, daily range): BP systolic 108–125; BP diastolic 68–77; PULSE 62–113; RESP 16–19; TEMP 97.4–97.8; O2SAT 96–98
[2024-10-02] MEDS: AMIODARONE 450mg/250ml AE 250 ML IV SCH (01:00)
[2024-10-02] MEDS ORDERED: CARV3.1240 PO (05:36)
--- NOTE | 2024-10-02 08:09 | DVH ---
EXAM: XR Chest, 1 View CLINICAL INDICATION: CHEST PAIN TECHNIQUE: Frontal view of the chest. COMPARISON: XY CHEST PORTABLE on DOS: 10/01/24, CHEST PORTABLE on DOS: 11/22/22, CXRP on DOS: 11/22/22 FINDINGS: LUNGS AND PLEURAL SPACES: Unremarkable. No consolidation. No pneumothorax. HEART: Unremarkable. No cardiomegaly. MEDIASTINUM: Unremarkable. Normal mediastinal contour. BONES/JOINTS: Unremarkable. No acute fracture. OTHER FINDINGS: . . . IMPRESSION: No acute cardiopulmonary process. HS:Y
[2024-10-02] MEDS: ASPirin 81 mg TAB PO SCH (09:33)
[2024-10-02] MEDS: DOCUSATE SOD 100 MG CAP PO SCH (09:33)
[2024-10-02 10:57] LABS: Basophils # (auto) 0 10 ^3/uL (0-0.2); Basophils % (auto) 0.3 % (0.0-2.0); Eosinophils # (auto) 0.1 10 ^3/uL (0-0.8); Eosinophils % (auto) 1.2 % (0.0-7.0); Hematocrit 45.9 % (41.0-53.0); Lymphocytes # (auto) 1.3 10 ^3/uL (0.4-5.4); Lymphocytes % (auto) 21.1 % (10.0-50.0); Mean Corpuscular Hemoglobin 30.2 pg (28.0-32.0); Mean Corpuscular Hgb Conc. 34.9 g/dL (32.0-36.0); Mean Corpuscular Volume 86.6 fL (80.0-100.0); Monocytes # (auto) 0.9 10 ^3/uL (0-1.3); Monocytes % (auto) 14.2 % (0.0-12.0); Neutrophils # (auto) 3.8 10 ^3/uL (1.6-8.6); Neutrophils % (auto) 63.2 % (37.0-80.0); Nucleated Red Blood Cells % 0.4 %; Platelet Count (auto) 208 10^3/uL (140-450); Red Cell Distribution Width 14.2 % (11.8-14.3)
[2024-10-02 11:13] LABS: Alanine Aminotransferase 25 U/L (7-40); Albumin 3.9 g/dL (3.2-4.8); Alkaline Phosphatase 83 U/L (46-116); Anion Gap 5 (5-15); Aspartate Aminotransferase 22 U/L (13-40); BUN/Creatinine Ratio 13.4 (10.0-20.0); Bilirubin, Total 0.9 mg/dL (0.2-1.0); Blood Urea Nitrogen 15 mg/dL (9-23); Calcium 9.9 mg/dL (8.7-10.4); Carbon Dioxide 30 mmol/L (20-31); Chloride 105 mmol/L (98-107); Glucose 101 mg/dL (74-106); Potassium 4.6 mmol/L (3.5-5.1); Sodium 140 mmol/L (136-145); Total Protein 6.3 g/dL (5.7-8.2)
--- NOTE | 2024-10-02 11:21 | DVHSR ---
APPROVED REPORT EXAM: LIMITED Two-dimensional and M-mode echocardiogram with Doppler and color Doppler. Blood Pressure: 156/61 mmHg INDICATION Chest Pain RISK FACTORS Height: 6'0, Weight: 207 DIMENSIONS LVDd4.7 (3.8-5.7cm)LA (2D)3.8 (1.9-4.0cm)Aortic Root4.3 (2.0-3.7cm) LVDs3.5 (2.5-4.0cm)LA (MM) (1.9-4.0cm)Aortic Cusp Exc2.0 (1.5-2.0cm) EF (%) 50.0 (55-70%)Rt. Atrium3.9 (1.9-4.0cm)Asc. Aorta3.6 cm IVSd1.0 (0.7-1.1cm)RV (D) (1.8-2.4cm) PWd1.0 (0.7-1.1cm) Mitral Valve MitralMitral Stenosis E wave0.93m/sMV Mean GR.mmHg A wave0.00m/sMV Peak GR.mmHg E/A ratio0.02D MVAcm2 DECEL [id number] 1/2 Timems Aortic Valve Aortic ValveAortic Stenosis V11.09m/Beatrice Mean GR.2mmHg V20.97m/Beatrice Peak GR.4mmHg LVOT Diameter2.4 (1.8-2.4cm)Doppler AVA5.08cm2 Pulmonic Valve V20.89m/s Tricuspid Valve TR Velocity2.23m/s [id number] Other Information Quality : Technically LimitedRhythm : Technically limited study due to body habitus.patient position. Conclusion lvef 35% by visual estimate global dysfunction in setting of afib RV enlarged mild biatrial enlargement
--- NOTE | 2024-10-02 13:30 | DVHPN2 ---
Progress Note Date Seen: Oct 02, 2024 Medical Necessity Reason Pt with a Central, PICC or Fol: No Subjective Patient reports: Feels better Other Systems: AF --> SR Objective vital signs Vital Sign Date Time Temp Pulse Resp B/P (MAP) Pulse Ox O2 Delivery O2 Flow Rate FiO2 10/02/24 13:00 97.7 62 16 108/72 (84) 97 97.7 10/02/24 08:00 Room Air* 0 21 Total Intake and Output 10/01/24 10/01/24 10/02/24 15:00 23:00 07:00 Intake Total 1000 ml 407.5 ml Output Total 1950 ml Balance 1000 ml -1542.5 ml medications Current Medications Medications Dose Ordered Sig/Eulalia Route Start Time Stop Time Status Last Admin Dose Admin Aspirin 81 mg DAILY PO 10/02/24 10:00 10/02/24 09:33 81 MG Atorvastatin Calcium 40 mg HS PO 10/01/24 22:00 10/01/24 21:57 40 MG Acetaminophen 650 mg Q6HP PRN PO 10/01/24 14:15 Zolpidem Tartrate 5 mg QHSP PRN PO 10/01/24 14:15 Lorazepam 0.5 mg Q6HP PRN PO 10/01/24 14:15 Docusate Sodium 100 mg DAILY PO 10/02/24 10:00 10/02/24 09:33 100 MG Ondansetron HCl 4 mg Q4HP PRN IV 10/01/24 14:15 Nitroglycerin 0.4 mg Q5MINP PRN SL 10/01/24 14:15 Morphine Sulfate 2 mg Q30M PRN IV 10/01/24 14:15 Apixaban 5 mg BID PO 10/01/24 22:00 10/02/24 09:34 5 MG Metoprolol Tartrate 25 mg BID PO 10/01/24 22:00 10/02/24 09:34 25 MG Amiodarone HCl 250 ml @ 16.667 mls/ hr Q15H IV 10/02/24 01:00 10/02/24 01:00 16.667 MLS/HR Examination: GENERAL:Abnormal, HEENT:Abnormal, LUNGS:Abnormal, CVS:Abnormal, ABDOMEN:Abnormal laboratory and microbiology Laboratory Tests 10/02/24 10:40 Test 10/02/24 10:40 Range/Units Serum Glucose 101 74-106 mg/dL Problem List/Assessment/Plan Problem List/Assessment/Plan afib htn hl new onset systolic HF nyha class II ckd dc home on doac resume coreg add melinda/arb on dc for low EF outpt fu Plan discussed with: Patient Date of Service: Oct 02, 2024 Billing Provider: PEPE CARBAJAL MD Common Visit Codes: NOT BILLABLE PEPE CARBAJAL MD Oct 02, 2024 13:30
--- NOTE | 2024-10-02 14:52 | DVHPN2 ---
Subjective The patient is seen and examined at bedside. Denied any chest pain or heart palpitation. Reviewed: Care Plan, H&P, Labs, Medications, Previous Orders, Radiology Changes from previous H/P or p: No Changes Eyes: No Pain, No Vision change, No Conjunctivae inflammation, No Eyelid inflammation, No Other, No Redness ENT: No Ear pain, No Ear discharge, No Nose pain, No Nose discharge, No Nose congestion, No Mouth pain, No Mouth swelling, No Throat pain, No Throat swelling, No Other Cardiovascular: Chest Pain, Palpitations; No Orthopnea, No Paroxysmal Noc. Dyspnea, No Edema; Lt Headedness; No Other Respiratory: No Cough, No Dry; Shortness of breath; No SOB with excertion, No Wheezing, No Hemoptysis, No Pleuritic Pain, No Sputum, No Other Gastrointestinal: No Nausea, No Vomiting, No Abdominal Pain, No Diarrhea, No Constipation, No Melena, No Hematochezia, No Other Genitourinary: No Dysuria, No Frequency, No Incontinence, No Hematuria, No Retention, No Other Musculoskeletal: No other, No neck pain, No shoulder pain, No arm pain, No back pain, No hand pain, No leg pain, No foot pain Skin: No Rash, No Lesions, No Jaundice, No Bruising, No Other Objective Vitals Vital Signs Date Time Temp Pulse Resp B/P (MAP) Pulse Ox O2 Delivery O2 Flow Rate FiO2 10/02/24 13:00 97.7 62 16 108/72 (84) 97 97.7 10/02/24 08:00 Room Air* 0 21 Intake/Output Intake and Output 10/02/24 07:00 Intake Total 1407.5 ml Output Total 1950 ml Balance -542.5 ml Intake Oral 300 ml IV Total 1107.5 ml Output Urine Total 1950 ml General Appearance: Alert, Oriented X3, Cooperative, No acute distress HEENT: Atraumatic, PERRLA, EOMI, Mucous membr. moist/pink Neck: Supple Lungs: Clear to auscultation, Normal air movement Cardiovascular: Regular rate, Normal S1, Normal S2, No murmurs, Gallops, Rubs Abdomen: Normal bowel sounds, Soft, No tenderness Neuro: Cranial nerves 3-12 NL Medications Current Medications Medications Dose Ordered Sig/Eulalia Route Start Time Stop Time Status Last Admin Dose Admin Aspirin 81 mg DAILY PO 10/02/24 10:00 12/14/24 09:33 81 MG Atorvastatin Calcium 40 mg HS PO 10/01/24 22:00 10/01/24 21:57 40 MG Acetaminophen 650 mg Q6HP PRN PO 10/01/24 14:15 Zolpidem Tartrate 5 mg QHSP PRN PO 10/01/24 14:15 Lorazepam 0.5 mg Q6HP PRN PO 10/01/24 14:15 Docusate Sodium 100 mg DAILY PO 10/02/24 10:00 10/02/24 09:33 100 MG Ondansetron HCl 4 mg Q4HP PRN IV 10/01/24 14:15 Nitroglycerin 0.4 mg Q5MINP PRN SL 10/01/24 14:15 Morphine Sulfate 2 mg Q30M PRN IV 10/01/24 14:15 Apixaban 5 mg BID PO 10/01/24 22:00 10/02/24 09:34 5 MG Metoprolol Tartrate 25 mg BID PO 10/01/24 22:00 10/02/24 09:34 25 MG Amiodarone HCl 250 ml @ 16.667 mls/ hr Q15H IV 10/02/24 01:00 10/02/24 01:00 16.667 MLS/HR Laboratory Results Laboratory Tests 10/02/24 10:40 Chemistry Test 10/02/24 10:40 Albumin 3.9 g/dL (3.2-4.8) Calcium Level 9.9 mg/dL (8.7-10.4) Total Protein 6.3 g/dL (5.7-8.2) LFT Test 10/02/24 10:40 Alanine Aminotransferase (ALT) 25 U/L (7-40) Alkaline Phosphatase 83 U/L (46-116) Aspartate Amino Transferase (AST) 22 U/L (13-40) Total Bilirubin 0.9 mg/dL (0.2-1.0) Urinalysis Test 10/01/24 10:56 Urine Color Yellow (Yellow) Urine Clarity Clear (Clear) Urine pH 5.5 (5.0-9.0) Urine Specific [place] 1.026 (1.001-1.035) Urine Protein Trace (Negative) H Urine Ketones 1+ (Negative) H Urine Blood 1+ /uL (Negative) H Urine Nitrite Negative (Negative) Urine Bilirubin Negative (Negative) Urine Urobilinogen Normal mg/dL (Negative) Urine Leukocyte Esterase Negative /uL (Negative) Urine RBC 19 /hpf (0 - 3) Urine WBC 2 /hpf (0 - 3) Urine Squamous Epithelial Cells None seen /hpf (<5) Urine Calcium Oxalate Crystals Few (None Seen) Urine Bacteria None seen /hpf (None Seen) Urine Hyaline Casts Few /lpf (0 - 2) Urine Mucus Few (None Seen) Urine Glucose Normal mg/dL (Normal) Labs and/or images reviewed: Labs reviewed by me Assessment/Plan Assessment/Plan Acute atrial fibrillation with RVR Acute new onset of systolic congestive heart failure with exacerbation, EF 35% Hypertension Benign prostate hypertrophy Plan: Continuing current management. Continuing with IV amiodarone per cable hooker's recommendation. Continuing with metoprolol, aspirin, Eliquis, statin Lipitor. Hopefully can switch amiodarone to oral soon. Appreciate cable hooker's input. Outpatient workup for ischemia per cable hooker's recommendation. Discharge planning. Plan discussed with: Patient Date of Service: Oct 02, 2024 Billing Provider: SUNDAR SAXENA MD Common Visit Codes: [id number] INP/OBS CARE(HIGH) SUNDAR SAXENA MD Oct 02, 2024 14:52
[2024-10-03] VITALS (8 sets, daily range): BP systolic 100–113; BP diastolic 61–73; PULSE 55–79; RESP 16–19; TEMP 97.4–98.4; O2SAT 95–98
[2024-10-03 10:35] LABS: Anion Gap 7 (5-15); Carbon Dioxide 28 mmol/L (20-31); Chloride 106 mmol/L (98-107); Potassium 4.5 mmol/L (3.5-5.1); Sodium 141 mmol/L (136-145)
[2024-10-03 10:36] LABS: Calcium 9.8 mg/dL (8.7-10.4)
[2024-10-03 10:41] LABS: BUN/Creatinine Ratio 13.9 (10.0-20.0); Basophils # (auto) 0 10 ^3/uL (0-0.2); Basophils % (auto) 0.1 % (0.0-2.0); Blood Urea Nitrogen 14 mg/dL (9-23); Eosinophils # (auto) 0.1 10 ^3/uL (0-0.8); Eosinophils % (auto) 1.1 % (0.0-7.0); Glucose 100 mg/dL (74-106); Hematocrit 46.6 % (41.0-53.0); Mean Corpuscular Hemoglobin 29.8 pg (28.0-32.0); Mean Corpuscular Hgb Conc. 34.4 g/dL (32.0-36.0); Mean Corpuscular Volume 86.8 fL (80.0-100.0); Monocytes # (auto) 0.7 10 ^3/uL (0-1.3); Monocytes % (auto) 10.1 % (0.0-12.0); Neutrophils # (auto) 5.5 10 ^3/uL (1.6-8.6); Neutrophils % (auto) 74.7 % (37.0-80.0); Nucleated Red Blood Cells % 0.1 %; Platelet Count (auto) 208 10^3/uL (140-450); Red Blood Cells 5.37 10^6/uL (4.5-5.90); Red Cell Distribution Width 13.8 % (11.8-14.3); White Blood Cell 7.4 10^3/uL (4.4-10.8)
--- NOTE | 2024-10-03 13:07 | DVHPN2 ---
Subjective The patient is seen and examined at bedside. Denied any chest pain or heart palpitation. Reviewed: Care Plan, H&P, Labs, Medications, Previous Orders, Radiology Changes from previous H/P or p: No Changes Eyes: No Pain, No Vision change, No Conjunctivae inflammation, No Eyelid inflammation, No Other, No Redness ENT: No Ear pain, No Ear discharge, No Nose pain, No Nose discharge, No Nose congestion, No Mouth pain, No Mouth swelling, No Throat pain, No Throat swelling, No Other Cardiovascular: Chest Pain, Palpitations; No Orthopnea, No Paroxysmal Noc. Dyspnea, No Edema; Lt Headedness; No Other Respiratory: No Cough, No Dry; Shortness of breath; No SOB with excertion, No Wheezing, No Hemoptysis, No Pleuritic Pain, No Sputum, No Other Gastrointestinal: No Nausea, No Vomiting, No Abdominal Pain, No Diarrhea, No Constipation, No Melena, No Hematochezia, No Other Genitourinary: No Dysuria, No Frequency, No Incontinence, No Hematuria, No Retention, No Other Musculoskeletal: No other, No neck pain, No shoulder pain, No arm pain, No back pain, No hand pain, No leg pain, No foot pain Skin: No Rash, No Lesions, No Jaundice, No Bruising, No Other Objective Vitals Vital Signs Date Time Temp Pulse Resp B/P (MAP) Pulse Ox O2 Delivery O2 Flow Rate FiO2 10/03/24 10:01 64 109/70 10/03/24 08:00 Room Air* 0 21 10/03/24 05:00 97.8 19 98 97.8 Intake/Output Intake and Output 10/03/24 07:00 Intake Total 1118 ml Balance 1118 ml Intake Oral 1118 ml # Voids 8 # Bowel Movements 1 General Appearance: Alert, Oriented X3, Cooperative, No acute distress HEENT: Atraumatic, PERRLA, EOMI, Mucous membr. moist/pink Neck: Supple Lungs: Clear to auscultation, Normal air movement Cardiovascular: Regular rate, Normal S1, Normal S2, No murmurs, Gallops, Rubs Abdomen: Normal bowel sounds, Soft, No tenderness Neuro: Cranial nerves 3-12 NL Medications Current Medications Medications Dose Ordered Sig/Eulalia Route Start Time Stop Time Status Last Admin Dose Admin Aspirin 81 mg DAILY PO 10/02/24 10:00 10/03/24 10:01 81 MG Atorvastatin Calcium 40 mg HS PO 10/01/24 22:00 10/02/24 21:43 40 MG Acetaminophen 650 mg Q6HP PRN PO 10/01/24 14:15 Zolpidem Tartrate 5 mg QHSP PRN PO 10/01/24 14:15 Lorazepam 0.5 mg Q6HP PRN PO 10/01/24 14:15 Docusate Sodium 100 mg DAILY PO 10/02/24 10:00 10/03/24 10:00 100 MG Ondansetron HCl 4 mg Q4HP PRN IV 10/01/24 14:15 Nitroglycerin 0.4 mg Q5MINP PRN SL 10/01/24 14:15 Morphine Sulfate 2 mg Q30M PRN IV 10/01/24 14:15 Apixaban 5 mg BID PO 10/01/24 22:00 10/03/24 10:00 5 MG Metoprolol Tartrate 25 mg BID PO 10/01/24 22:00 10/03/24 10:01 25 MG Amiodarone HCl 250 ml @ 16.667 mls/ hr Q15H IV 10/02/24 01:00 10/03/24 06:32 16.667 MLS/HR Laboratory Results Laboratory Tests 10/03/24 09:55 Chemistry Test 10/03/24 09:55 Calcium Level 9.8 mg/dL (8.7-10.4) Urinalysis Test 10/01/24 10:56 Urine Color Yellow (Yellow) Urine Clarity Clear (Clear) Urine pH 5.5 (5.0-9.0) Urine Specific [place] 1.026 (1.001-1.035) Urine Protein Trace (Negative) H Urine Ketones 1+ (Negative) H Urine Blood 1+ /uL (Negative) H Urine Nitrite Negative (Negative) Urine Bilirubin Negative (Negative) Urine Urobilinogen Normal mg/dL (Negative) Urine Leukocyte Esterase Negative /uL (Negative) Urine RBC 19 /hpf (0 - 3) Urine WBC 2 /hpf (0 - 3) Urine Squamous Epithelial Cells None seen /hpf (<5) Urine Calcium Oxalate Crystals Few (None Seen) Urine Bacteria None seen /hpf (None Seen) Urine Hyaline Casts Few /lpf (0 - 2) Urine Mucus Few (None Seen) Urine Glucose Normal mg/dL (Normal) Labs and/or images reviewed: Labs reviewed by me Assessment/Plan Assessment/Plan Acute atrial fibrillation with RVR Acute new onset of systolic congestive heart failure with exacerbation, EF 35% Hypertension Benign prostate hypertrophy Plan: Continuing current management. Continuing with IV amiodarone per power barker operator's recommendation. Continuing with metoprolol, aspirin, Eliquis, statin Lipitor. Hopefully can switch amiodarone to oral soon. Appreciate power barker operator's input. Outpatient workup for ischemia per power barker operator's recommendation. Discharge planning when we can switch amiodarone IV to pill Plan discussed with: Patient Date of Service: Oct 03, 2024 Billing Provider: SUNDAR SAXENA MD Common Visit Codes: [id number] INP/OBS CARE(HIGH) SUNDAR SAXENA MD Oct 03, 2024 13:07
[2024-10-04] VITALS (8 sets, daily range): BP systolic 106–122; BP diastolic 58–71; PULSE 61–76; RESP 17–20; TEMP 36.9; O2SAT 95–98
--- NOTE | 2024-10-04 10:54 | CONS ---
Pharmacy Clinical Information: From [facility] Heart Failure Fallout Report, Gurpreet Jonatan Boo is a 64 year old male with PMH of paroxysmal Afib, BPH, and new onset systolic HF (LVEF 35%) NHYA class II. His home medications include carvedilol. His inpatient medications include metoprolol tartrate. Per chair post machine operator, will resume carvedilol and add ACEi/ARB at discharge. Consider initiating MRA and SGLT2i at next outpatient chair post machine operator visit if patient continues to be symptomatic. PRINCESS KOO PHARMACIST Oct 04, 2024 10:54
--- NOTE | 2024-10-04 10:56 | DVHPN2 ---
Progress Note Date Seen: Oct 04, 2024 Medical Necessity Reason Pt with a Central, PICC or Fol: No Subjective Other Systems: pt still in hospital Objective vital signs Vital Sign Date Time Temp Pulse Resp B/P (MAP) Pulse Ox O2 Delivery O2 Flow Rate FiO2 10/04/24 09:36 63 112/63 10/04/24 08:55 98.5 17 97 98.5 10/04/24 08:00 Room Air* 0 21 Total Intake and Output 10/03/24 10/03/24 10/04/24 15:00 23:00 07:00 Intake Total 800 ml Balance 800 ml medications Current Medications Medications Dose Ordered Sig/Eulalia Route Start Time Stop Time Status Last Admin Dose Admin Aspirin 81 mg DAILY PO 10/02/24 10:00 10/04/24 09:35 81 MG Atorvastatin Calcium 40 mg HS PO 10/01/24 22:00 10/03/24 23:14 40 MG Acetaminophen 650 mg Q6HP PRN PO 10/01/24 14:15 Zolpidem Tartrate 5 mg QHSP PRN PO 10/01/24 14:15 Lorazepam 0.5 mg Q6HP PRN PO 10/01/24 14:15 Docusate Sodium 100 mg DAILY PO 10/02/24 10:00 10/04/24 09:35 100 MG Ondansetron HCl 4 mg Q4HP PRN IV 10/01/24 14:15 Nitroglycerin 0.4 mg Q5MINP PRN SL 10/01/24 14:15 Morphine Sulfate 2 mg Q30M PRN IV 10/01/24 14:15 Apixaban 5 mg BID PO 10/01/24 22:00 10/04/24 09:36 5 MG Metoprolol Tartrate 25 mg BID PO 10/01/24 22:00 10/04/24 09:36 25 MG Amiodarone HCl 250 ml @ 16.667 mls/ hr Q15H IV 10/02/24 01:00 10/03/24 22:00 16.667 MLS/HR Examination: GENERAL:Abnormal, HEENT:Abnormal, LUNGS:Abnormal, CVS:Abnormal, ABDOMEN:Abnormal laboratory and microbiology Laboratory Tests 10/03/24 09:55 Test 10/03/24 09:55 Range/Units Serum Glucose 100 74-106 mg/dL Problem List/Assessment/Plan Problem List/Assessment/Plan afib htn hl new onset systolic HF nyha class II ckd dc home on doac resume coreg add melinda/arb on dc for low EF outpt fu Plan discussed with: Patient Date of Service: Oct 04, 2024 Billing Provider: PEPE CARBAJAL MD Common Visit Codes: NOT BILLABLE PEPE CARBAJAL MD Oct 04, 2024 10:56
--- NOTE | 2024-10-04 11:25 | DVHPN2 ---
Subjective The patient is seen and examined at bedside. Denied any chest pain or heart palpitation. Reviewed: Care Plan, H&P, Labs, Medications, Previous Orders, Radiology Eyes: No Pain, No Vision change, No Conjunctivae inflammation, No Eyelid inflammation, No Other, No Redness ENT: No Ear pain, No Ear discharge, No Nose pain, No Nose discharge, No Nose congestion, No Mouth pain, No Mouth swelling, No Throat pain, No Throat swelling, No Other Cardiovascular: Chest Pain, Palpitations; No Orthopnea, No Paroxysmal Noc. Dyspnea, No Edema; Lt Headedness; No Other Respiratory: No Cough, No Dry; Shortness of breath; No SOB with excertion, No Wheezing, No Hemoptysis, No Pleuritic Pain, No Sputum, No Other Gastrointestinal: No Nausea, No Vomiting, No Abdominal Pain, No Diarrhea, No Constipation, No Melena, No Hematochezia, No Other Genitourinary: No Dysuria, No Frequency, No Incontinence, No Hematuria, No Retention, No Other Musculoskeletal: No other, No neck pain, No shoulder pain, No arm pain, No back pain, No hand pain, No leg pain, No foot pain Skin: No Rash, No Lesions, No Jaundice, No Bruising, No Other Objective Vitals Vital Signs Date Time Temp Pulse Resp B/P (MAP) Pulse Ox O2 Delivery O2 Flow Rate FiO2 10/04/24 09:36 63 112/63 10/04/24 08:55 98.5 17 97 98.5 10/04/24 08:00 Room Air* 0 21 Intake/Output Intake and Output 10/04/24 07:00 Intake Total 800 ml Balance 800 ml Intake Oral 800 ml # Voids 10 # Bowel Movements 1 General Appearance: Alert, Oriented X3, Cooperative, No acute distress HEENT: Atraumatic, PERRLA, EOMI, Mucous membr. moist/pink Neck: Supple Lungs: Clear to auscultation, Normal air movement Cardiovascular: Regular rate, Normal S1, Normal S2, No murmurs, Gallops, Rubs Abdomen: Normal bowel sounds, Soft, No tenderness Neuro: Cranial nerves 3-12 NL Medications Current Medications Medications Dose Ordered Sig/Eulalia Route Start Time Stop Time Status Last Admin Dose Admin Aspirin 81 mg DAILY PO 10/02/24 10:00 10/04/24 09:35 81 MG Atorvastatin Calcium 40 mg HS PO 10/01/24 22:00 10/03/24 23:14 40 MG Acetaminophen 650 mg Q6HP PRN PO 10/01/24 14:15 Zolpidem Tartrate 5 mg QHSP PRN PO 10/01/24 14:15 Lorazepam 0.5 mg Q6HP PRN PO 10/01/24 14:15 Docusate Sodium 100 mg DAILY PO 10/02/24 10:00 10/04/24 09:35 100 MG Ondansetron HCl 4 mg Q4HP PRN IV 10/01/24 14:15 Nitroglycerin 0.4 mg Q5MINP PRN SL 10/01/24 14:15 Morphine Sulfate 2 mg Q30M PRN IV 10/01/24 14:15 Apixaban 5 mg BID PO 10/01/24 22:00 10/04/24 09:36 5 MG Metoprolol Tartrate 25 mg BID PO 10/01/24 22:00 10/04/24 09:36 25 MG Laboratory Results Laboratory Tests 10/03/24 09:55 Urinalysis Test 10/01/24 10:56 Urine Color Yellow (Yellow) Urine Clarity Clear (Clear) Urine pH 5.5 (5.0-9.0) Urine Specific [place] 1.026 (1.001-1.035) Urine Protein Trace (Negative) H Urine Ketones 1+ (Negative) H Urine Blood 1+ /uL (Negative) H Urine Nitrite Negative (Negative) Urine Bilirubin Negative (Negative) Urine Urobilinogen Normal mg/dL (Negative) Urine Leukocyte Esterase Negative /uL (Negative) Urine RBC 19 /hpf (0 - 3) Urine WBC 2 /hpf (0 - 3) Urine Squamous Epithelial Cells None seen /hpf (<5) Urine Calcium Oxalate Crystals Few (None Seen) Urine Bacteria None seen /hpf (None Seen) Urine Hyaline Casts Few /lpf (0 - 2) Urine Mucus Few (None Seen) Urine Glucose Normal mg/dL (Normal) Assessment/Plan Assessment/Plan Acute atrial fibrillation with RVR Acute new onset of systolic congestive heart failure with exacerbation, EF 35% Hypertension Benign prostate hypertrophy Plan: Continuing current management. Continuing with IV amiodarone per open cut examiner's recommendation. Continuing with metoprolol, aspirin, Eliquis, statin Lipitor. Hopefully can switch amiodarone to oral soon. Appreciate open cut examiner's input. Outpatient workup for ischemia per open cut examiner's recommendation. Discharge planning when we can switch amiodarone IV to pill SUNDAR SAXENA MD Oct 04, 2024 11:25
--- NOTE | 2024-10-04 11:26 | ECG ---
[facility] Test Date: 2024-10-01 Test Time: 10:57:14 Pat Name: ARASH ADAMS Department: ER Room: 0293T Gender: M Client Support Analyst: ELIZABETH : 1960 Requested By: PAULY DENISE Order Number: [id number] Reading MD: Measurements Intervals [place] Rate: 156 P: 0 [place]: 0 QRS: 85 QRSD: 93 T: 13 QT: 288 QTc: 464 Interpretive Statements Atrial fibrillation with rapid V-rate Ventricular premature complex Borderline right axis deviation ST depression, probably rate related Please click the below link to view image of tracing.
--- NOTE | 2024-10-04 12:25 | DVHDS2 ---
Discharge Summary Date of Admission Oct 01, 2024 at 14:15 Date of Discharge: Oct 04, 2024 Admitting Diagnosis Acute atrial fibrillation with RVR Acute new onset of systolic congestive heart failure with exacerbation, EF 35% Hypertension Benign prostate hypertrophy Labs/Diagnostic Data: Laboratory Results Test 10/03/24 09:55 10/02/24 10:40 10/01/24 14:12 10/01/24 11:00 White Blood Count 7.4 10^3/uL (4.4-10.8) Red Blood Count 5.37 10^6/uL (4.5-5.90) Hemoglobin 16.0 g/dL (13.5-17.5) Hematocrit 46.6 % (41.0-53.0) Mean Corpuscular Volume 86.8 fL (80.0-100.0) Mean Corpuscular Hemoglobin 29.8 pg (28.0-32.0) Mean Corpuscular Hemoglobin Concent 34.4 g/dL (32.0-36.0) Red Cell Distribution Width 13.8 % (11.8-14.3) Platelet Count 208 10^3/uL (140-450) Mean Platelet Volume 8.5 fL (6.9-10.8) Neutrophils (%) (Auto) 74.7 % (37.0-80.0) Lymphocytes (%) (Auto) 14.0 % (10.0-50.0) Monocytes (%) (Auto) 10.1 % (0.0-12.0) Eosinophils (%) (Auto) 1.1 % (0.0-7.0) Basophils (%) (Auto) 0.1 % (0.0-2.0) Neutrophils # (Auto) 5.5 10 ^3/uL (1.6-8.6) Lymphocytes # (Auto) 1.0 10 ^3/uL (0.4-5.4) Monocytes # (Auto) 0.7 10 ^3/uL (0-1.3) Eosinophils # (Auto) 0.1 10 ^3/uL (0-0.8) Basophils # (Auto) 0 10 ^3/uL (0-0.2) Nucleated Red Blood Cells 0.1 % Sodium Level 141 mmol/L (136-145) Potassium Level 4.5 mmol/L (3.5-5.1) Chloride Level 106 mmol/L (98-107) Carbon Dioxide Level 28 mmol/L (20-31) Anion Gap 7 (5-15) Blood Urea Nitrogen 14 mg/dL (9-23) Creatinine 1.01 mg/dL (0.700-1.30) Glomerular Filtration Rate Calc 84 mL/min (>90) BUN/Creatinine Ratio 13.9 (10.0-20.0) Serum Glucose 100 mg/dL (74-106) Calcium Level 9.8 mg/dL (8.7-10.4) Total Bilirubin 0.9 mg/dL (0.2-1.0) Aspartate Amino Transferase (AST) 22 U/L (13-40) Alanine Aminotransferase (ALT) 25 U/L (7-40) Alkaline Phosphatase 83 U/L (46-116) Total Protein 6.3 g/dL (5.7-8.2) Albumin 3.9 g/dL (3.2-4.8) Troponin I High Sensitivity 3 ng/L (</=54) Triglycerides Level 96 mg/dL (< 150) Cholesterol Level 130 mg/dL (< 200) LDL Cholesterol 78 mg/dL (< 100) HDL Cholesterol 37 mg/dL (40-59) Thyroid Stimulating Hormone (TSH) 2.17 uIU/mL (0.55-4.78) Hemoglobin A1c 5.5 % A1C (<5.7) Lactic Acid Level 1.8 mmol/L (0.4-2.0) Magnesium Level 2.2 mg/dL (1.6-2.6) B-Type Natriuretic Peptide 443.14 pg/mL (0-100) Test 10/01/24 10:59 10/01/24 10:56 Urine Opiates Screen Neg (NEGATIVE) Urine Fentanyl Screen Neg (NEGATIVE) Urine Barbiturates Screen Neg (NEGATIVE) Urine Phencyclidine Screen Neg (NEGATIVE) Urine Amphetamines Screen Neg (NEGATIVE) Urine Benzodiazepines Screen Neg (NEGATIVE) Urine Cocaine Screen Neg (NEGATIVE) Urine Cannabinoids Screen Neg (NEGATIVE) Urine Color Yellow (Yellow) Urine Clarity Clear (Clear) Urine pH 5.5 (5.0-9.0) Urine Specific [place] 1.026 (1.001-1.035) Urine Protein Trace (Negative) Urine Ketones 1+ (Negative) Urine Blood 1+ /uL (Negative) Urine Nitrite Negative (Negative) Urine Bilirubin Negative (Negative) Urine Urobilinogen Normal mg/dL (Negative) Urine Leukocyte Esterase Negative /uL (Negative) Urine RBC 19 /hpf (0 - 3) Urine WBC 2 /hpf (0 - 3) Urine Squamous Epithelial Cells None seen /hpf (<5) Urine Calcium Oxalate Crystals Few (None Seen) Urine Bacteria None seen /hpf (None Seen) Urine Hyaline Casts Few /lpf (0 - 2) Urine Mucus Few (None Seen) Urine Glucose Normal mg/dL (Normal) Other Laboratory Tests 10/03/24 09:55 Brief Hx & Hospital Course: This is a 64 years old male with past medical history of atrial fibrillation, BPH came to emergency department because of heart palpitation, lightheadedness, shortness for breath and chest pain for one day. The patient said he went to a [employer] restaurant to have some buffets and then started having stomach flu that he was having diarrhea for couple day and after that he started having severe heart palpitation and dizziness and lightheadedness. The patient also was on Eliquis and flecainide. The patient had a root canal done two days ago and had stopped Eliquis for two days but has resume it back. He no longer take flecainide. He did not go back to his barrow worker to refill flecainide. Troponin level is negative. 2D echo showed:lvef 35% by visual estimate global dysfunction in setting of afib. RV enlarged mild biatrial enlargement His barrow worker is Dr. Tam. So we consult Dr. Tam and the patient was put on amiodarone drip. The amiodarone drip was stopped today and Dr. Tam did not recommend to put the patient on any oral amiodarone. He recommend beta indra Coreg because the patient can not tolerate metoprolol, statin, Eliquis. Follow up with Dr. Tam per schedule. Follow up with primary care physician 1-2 weeks. Activity as tolerated. Diet low-salt low-cholesterol diet. Physical exam: HEENT: Normocephalic atraumatic pupils equal react to light and accommodation. Extraocular muscles intact, conjunctiva pink, oropharynx moist, no thrush, no exudate. Lymphatic: No lymphadenopathy Cardiovascular exam: S1, S2 was heard. No murmurs, rubs, gallops Lung: Clear on auscultation bilaterally, no wheeze, rale, rhonchi. GI: Abdominal soft, nondistended, nontenderness, positive bowel sounds. Extremity: No crepitus, cyanosis, edema. Pedal pulses present bilateral. Full range of motion. Skin: Normal turgor, no rash. Psych: Alert, oriented x3. Neurology: No focal deficits, cranial nerve II to XII grossly intact. This medical document was created using an electronic medical record system with [employer] direct computerized dictation system. Although this document has been carefully reviewed, there may still be some phonetic and typographical errors. These areas are purely typographical due to imperfections of the software programs, and do not reflect any compromise in the patient's medical care. Condition at Discharge: Stable Final Diagnosis/Problems List Acute atrial fibrillation with RVR Acute new onset of systolic congestive heart failure with exacerbation, EF 35% Hypertension Benign prostate hypertrophy Discharge Disposition: Home Discharge Statement: "Patient was advised to return to the ER or call 911 if any headaches, dizziness, shortness of breath, chest pain, abdominal pain, bleeding, fevers, or worsening of medical condition. Patient was counseled about treatment plan, medications, possible side effects, patientverbalized understanding. All questions were answered to the best of my ability. This discharge took greater then 30 minutes in planning, reviewing documentation, counseling the patient, and discussing with other team members." ASSESSMENT ASSESSMENT Assessment Date of Service: Oct 04, 2024 Billing Provider: SUNDAR SAXENA MD Common Visit Codes: 53130-QSN/OBS DISCH DAY >30min SUNDAR SAXENA MD Oct 04, 2024 12:25
[2024-10-04] MEDS ORDERED: ASPI-325 PO (12:26)
[2024-10-04] MEDS ORDERED: ATOR-507 PO (12:26)
== END 2024-10-04 17:45 | disposition home or self-care (01) | DRG 201 ==
LOC: ER 10:44 → TELE 14:15 → TELE-WESTW 10-02 05:11
PROVIDERS: ATTEND Internal Medicine
DX: I48.0 Paroxysmal atrial fibrillation (principal); I50.23 Acute on chronic systolic (congestive) heart failure; I11.0 Hypertensive heart disease with heart failure; N40.0 Benign prostatic hyperplasia without lower urinary tract symptoms; Z80.3 Family history of malignant neoplasm of breast; Z80.7 Family history of other malignant neoplasms of lymphoid, hematopoietic and related tissues; Z79.01 Long term (current) use of anticoagulants
CPT/HCPCS: 36415; 71045; 80048; 80053; 80061; 80307; 81001; 83036; 83605; 83735; 83880; 84443; 84484; 85025; 93005; 93306; G0378

== ENCOUNTER 2024-10-05 11:31 | Emergency (ER) | payer OTHER ==
[~2024-10-05] VITALS: Ht 190.5 cm; Wt 93.1 kg
[~2024-10-05 11:31] MED LIST changes: -AMIO200T33 PO; +ASPI-325 PO; +ATOR-507 PO; +CARV3.1240 PO; -MET25T PO
--- NOTE | 2024-10-05 11:48 | ED.PDOC ---
History of Present Illness HPI Comments 64 Y M , presents to the ED with CC of wound check. Patient states that he has been experiencing bilateral arm tenderness and swelling, since the removal of AC IVS yesterday (10/04/24) at [facility]. Patient denies fever, chills, or N/V/D. Chief Complaint: Wound Check Time Seen by MD: 11:45 Primary Care Provider: QUYNH Martinez Notes: Nurses Notes, Medications, Allergies Allergies: Coded Allergies: NO KNOWN ALLERGIES (Unverified , 11/22/22) Home Meds Active Scripts Atorvastatin Calcium (Lipitor) 40 Mg Tab, 1 TAB PO QPM, #90 TAB 1 Refill Prov:SUNDAR SAXENA MD 10/04/24 Aspirin (Aspirin Low Dose) 81 Mg Tab, 81 MG PO DAILY, #30 TAB 5 Refills Prov:SUNDAR SAXENA MD 10/04/24 Apixaban Base (ELIQUIS) 5 Mg Tab, 5 MG PO BID for 30 Days, #60 TAB Prov:MAGRI GRAF MD 11/24/22 Reported Medications Carvedilol (Carvedilol) 3.125 Mg Tab, 1 TAB PO BID 10/02/24 Information Source: Patient Mode of Arrival: Ambulatory Severity: Mild Timing: Days Past Medical History PAST MEDICAL HISTORY: AFIB Surgical History: Unknown Family History Family History: Reviewed,noncontributory to illness Social History Smoker: Non-Smoker Alcohol: Rarely Drugs: Denies Drug Use Lives In: Home Constitutional: denies: chills, diaphoresis, fatigue, fever, malaise, sweats, weakness, others EENTM: denies: blurred vision, double vision, ear bleeding, ear discharge, ear drainage, ear pain, ear ringing, eye pain, eye redness, hearing loss, mouth pain, mouth swelling, nasal discharge, nose bleeding, nose congestion, nose pain, photophobia, tearing, throat pain, throat swelling, voice changes, others Respiratory: denies: cough, hemoptysis, orthopnea, SOB at rest, shortness of breath, SOB with excertion, stridor, wheezing, others Cardiovascular: denies: chest pain, dizzy spells, diaphoresis, Dyspnea on exert ion, edema, irregular heart beat, left arm pain, lightheadedness, palpitations, PND, syncope, others Gastrointestinal: denies: abdomen distended, abdominal pain, blood streaked bowels, constipated, diarrhea, dysphagia, difficulty swallowing, hematemesis, melena, nausea, poor appetite, poor fluid intake, rectal bleeding, rectal pain, vomiting, others Genitourinary: denies: burning, dysuria, flank pain, frequency, hematuria, incontinence, penile discharge, penile sore, pain, testicle pain, testicle swelling, urgency, others Neurological: denies: dizziness, fainting, headache, left sided numbness, left sided weakness, numbness, paresthesia, pre-existing deficit, right sided numbness, right sided weakness, seizure, speech problems, tingling, tremors, weakness, others Musculoskeletal: denies: back pain, gout, joint pain, joint swelling, muscle pain, muscle stiffness, neck pain, others Integumetry: denies: bruises, change in color, change in hair/nails, dryness, laceration, lesions, lumps, rash, wounds, others Allergic/Immunocompromised: denies: Difficulty Healing, Frequent Infections, Hives, Itching, others Hematologic/Lymphatic: denies: anemia, blood clots, easy bleeding, easy bruising, swollen glands, others Endocrine: denies: excessive hunger, excessive sweating, excessive thirst, excessive urination, flushing, intolerance to cold, intolerance to heat, unexplained weight gain, unexplained weight loss, others Psychiatric: denies: anxiety, bipolar disorder, depression, hopeless, panic disorder, schizophrenia, sleepless, suicidal, others All Other Systems: Reviewed and Negative Physical Exam General Appearance: No Apparent Distress, Normal HEENT: Normal ENT Inspection, Pharynx Normal, TMs Normal Neck: Full Range of Motion, Non-Tender, Normal, Normal Inspection Respiratory: Chest Non-Tender, Lungs Clear, No Accessory Muscle Use, No Respiratory Distress, Normal Breath Sounds Cardiovascular: No Edema, No JVD, No Murmur, No Gallop, Normal Peripheral Pulses, Regular Rate/Rhythm Breast Exam: Deferred Gastrointestinal: No Organomegaly, Non Tender, No Pulsatile Mass, Normal Bowel Sounds, Soft Genitalia: Deferred Pelvic: Deferred Rectal: Deferred Extremities: Inflammation, No calf tenderness, Normal capillary refill, Normal inspection, Normal range of motion, Non-tender, No pedal edema Musculoskeletal : Location: Bilateral Extremity Location: Arm Apperance: Normal, Other (no errethema) Neurologic: Alert, distribution a class lineman II-XII nml as Tested, No Motor Deficits, Normal Affect, Normal Mood, No Sensory Deficits Cerebellar Function: Normal Reflexes: Normal Skin: Dry, Normal Color, Warm Lymphatic: No Adenopathy Was a procedure done? Was a procedure done?: No Differential Dx Considerations may include: Phlebitis, thrombophlebitis, cellulitis X-Ray, Labs, Meds, VS Vital Signs Date Time Temp Pulse Resp B/P (MAP) Pulse Ox O2 Delivery O2 Flow Rate FiO2 10/05/24 11:37 97.7 83 16 126/55 (78) 97 Time of 1ST Reevaluation: 12:15 Reevaluation 1ST: Unchanged Patient Education/Counseling: Diagnosis, Treatment Family Education/Counseling: No Family Present Departure 1 Departure Time of Disposition: 11:58 (Patient has a small phlebitis. Counseled patient he is to use aspirin and warm complexes.) Impression: Primary Impression: Phlebitis Disposition: HOME / SELF CARE / HOMELESS Condition: Stable Additional Instructions: You likely have phlebitis. You can take an aspirin a day. You should use warm compresses You should elevate your limbs. This usually resolves within 1 week. If your symptoms worsen or if any other concerns please return to the emergency room. Discharged With: Self Critical Care Note Critical Care Time?: No Stability Stability form required: No Heart Score Heart Score: Heart Score Response (Comments) Value History N/A 0 EKG N/A 0 Age N/A 0 Risk Factors N/A 0 Troponin N/A 0 Total 0 I personally scribed for REED SIMPSON MD ([email or web address]) on 10/05/24 at 11:48. Electronically submitted by Shelby Perez ([email or web address]). I personally scribed for REED SIMPSON MD ([email or web address]) on 10/05/24 at 11:53. Electronically submitted by Shelby Perez ([email or web address]). REED SIMPSON MD Oct 05, 2024 11:48
[2024-10-05 12:15] VITALS: BP 126/55; PULSE 83; RESP 16; TEMP 97.7; O2SAT 97
== END 2024-10-05 12:31 | disposition home or self-care (01) ==
LOC: ER 11:31
DX: I80.9 Phlebitis and thrombophlebitis of unspecified site (principal); I48.91 Unspecified atrial fibrillation; Z79.82 Long term (current) use of aspirin; Z79.899 Other long term (current) drug therapy

== ENCOUNTER 2025-03-16 08:09 | Outpatient (CLI) | payer OTHER ==
[~2025-03-16] VITALS: Ht 190.5 cm; Wt 95.3 kg
[2025-03-16] MEDS: REGADENOSON 0.4 MG/5 ML SYRG IV ONE ×2 (09:52→10:02)
--- NOTE | 2025-03-17 11:36 | DVHSR ---
APPROVED REPORT Exam: Nuclear Stress Test Indication: Chest pain BMI: 0 Medical History Medical History: Atrial Fibrillation, LVH Stress Test Details Stress Test: Pharmacologic stress testing performed using 0.4 mg of regadenoson per 5 mL given IV ov er 10 seconds. HR Resting HR: 54 bpmMax Heart Rate (APMHR): 157.968103 bpm Max HR Achieved: 83 bpmTarget HR (85% APMHR): 133.233161 bpm % of APMHR: 52.87 Recovery HR: 68 bpm BP Resting BP: 111/76 mmHg Recovery BP: 123/71 mmHg ECG Resting ECG: Sinus Bradycardia Clinical Reason for Termination: Completed protocol Stress ECG Conclusion lvef 65% normal perfusions can no major ischemia NM EXAM: Myocardial Perfusion REST/STRESS Imaging Protocol: Rest Tc-99m/Stress Tc-99m 1 day Resting Data Rest SPECT myocardial perfusion imaging was performed in supine position 45 minutes following the int ravenous injection of 12.8 mCi of Tc-99m Sestamibi. Time of rest injection: 0840 Time of rest imagin Administration Route: IV Administration Site: Left Hand Pharmacologic Stress Pharmacologic stress test was performed by injecting Regadenoson 0.4 mg IV push followed by the intra venous injection of 33.6 mCi of Tc-99m Sestamibi. Time of stress injection: 1000 Time of stress imagin Administration Route: IV Administration Site: Left Hand Gated Stress SPECT was performed 60 minutes after stress injection. The images were gated to evaluate regional wall motion and calculate left ventricular ejection fracti on. Nuclear Conclusion Nuclear Findings: negative for ischemia lvef 65% normal perfusions can no major ischemia
== END 2025-03-16 17:00 | disposition home or self-care (01) ==
LOC: XYW 08:09
PROVIDERS: ATTEND Internal Medicine
DX: R00.1 Bradycardia, unspecified (principal); R07.9 Chest pain, unspecified; R06.02 Shortness of breath; R00.2 Palpitations; I48.91 Unspecified atrial fibrillation; I50.1 Left ventricular failure, unspecified
CPT/HCPCS: 78452; 93017; A9500; J2785